=== PATIENT | female | born 1940 | race Caucasian/White ===

== ENCOUNTER 2017-04-02 16:55 | Emergency (ER) | payer OTHER, MEDICARE ==
[2017-04-02 17:01] VITALS: TEMP 97.6
[2017-04-02] MEDS ORDERED: SODIUM CHLORIDE 0.9% 1,000 ML IV STA (17:44)
[2017-04-02] MEDS ORDERED: methylPREDNISolone SOD SUCCI 125 MG/2 ML VIAL IV STA (17:44)
[2017-04-02] MEDS ORDERED: IPRATROPIUM-ALBUTEROL 3 ML NEB INHALATION STA (17:44)
--- NOTE | 2017-04-02 17:49 | ED ---
General Adult HPI - General Chief complaint: Recheck/Abnormal Lab/Rx Stated complaint: Sent By Urgent Care Abnormal EKG Time Seen by Provider: 04/02/17 17:39 Source: patient Mode of arrival: ambulatory Limitations: no limitations - History of Present Illness Initial comments: This 76-year-old white female presents with a complaint of shortness of breath which has been present over the last 3 weeks. She has had a nonproductive cough as well as occasional chest tightness which is in her bilateral sternal region. This is nonpleuritic in nature. 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 She only utilizes oxygen at night. She has not utilized any breathing treatments but does utilize her inhalers. She is visiting from this area from out of town. She has tried some ewqa-suv-olqvpuo cough medication without relief. She denies any fevers or chills. She denies any leg pain or swelling or history of DVT or PE. She stopped utilizing tobacco 2 years ago. No other complaints or modifying factors. She was seen at an urgent care prior to arrival and sent to the ER for further evaluation. She was told that she has an abnormal EKG although the EKG from urgent care appears quite normal. - Related Data Home Medications Medication Instructions Recorded Confirmed Atorvastatin Calcium [Lipitor] 20 mg PO DAILY 04/02/17 04/02/17 Citalopram Hydrobromide 20 mg PO DAILY 04/02/17 04/02/17 [Citalopram HBr] Dabigatran [Pradaxa] 75 mg PO BID 04/02/17 04/02/17 Diltiazem Cd [Cardizem Cd] 180 mg PO DAILY 04/02/17 04/02/17 Ipratropium/Albuterol Sulfate 1 - 2 puff INHALATION RT-Q6H PRN 04/02/17 04/02/17 [Combivent Respimat Inhaler] Tiotropium Br/Olodaterol HCl 1 spray INHALATION RT-DAILY 04/02/17 04/02/17 [Stiolto Respimat Inhal [place]] guaiFENesin SYRUP 100MG/5ML 200 mg PO Q6H PRN 04/02/17 04/02/17 [Robitussin] Previous Rx's Medication Instructions Recorded Ipratropium-Albuterol Nebulize 3 ml INHALATION Q4H PRN #50 neb 04/02/17 [Duoneb 0.5 mg-3 mg/3 ml Soln] Levofloxacin [Levaquin] 500 mg PO DAILY #7 tab 04/02/17 Lxih-Zdqb-Cip 6.25-5-10Mg/5Ml 5 ml PO Q4H PRN #100 ml 04/02/17 [Phenergan VC with Codeine] predniSONE 20 mg PO BID #10 tab 04/02/17 Allergies Allergy/AdvReac Type Severity Reaction Status Date / Time Penicillins Allergy Rash/Hives Verified 04/02/17 17:58 Sulfa (Sulfonamide Allergy Rash/Hives Verified 04/02/17 17:58 Antibiotics) Review of Systems ROS Statement: Those systems with pertinent positive or pertinent negative responses have been documented in the HPI. ROS Other: All systems not noted in ROS Statement are negative. Past Medical History Past Medical History: Cancer, COPD, CVA/TIA, Hypertension Additional Past Medical History / Comment(s): breast CA History of Any Multi-Drug Resistant Organisms: None Reported Past Surgical History: Tonsillectomy Additional Past Surgical History / Comment(s): left breast tumor resection Past Psychological History: No Psychological Hx Reported Smoking Status: Former smoker Past Alcohol Use History: Occasional Past Drug Use History: None Reported General Exam - General Exam Comments Initial Comments: GENERAL: The patient is well nourished and well hydrated. VITAL SIGNS: Heart rate, blood pressure, respiratory rate reviewed as recorded in nurse's notes. EYES: Pupils are round and reactive. Extraocular movements are intact. No conjunctival / lid redness or swelling. ENT: No external evidence of injury, swelling, or ecchymosis. Airway is patent. Throat is clear. NECK: Nontender. No swelling or evidence of injury. No subcutaneous emphysema. Trachea is midline. No thyroid mass. HEART: Regular rate and rhythm. Good peripheral pulses. LUNGS/CHEST: Decreased aeration noted bilaterally. No rales, rhonchi, or wheezes. No ecchymosis, subcutaneous emphysema, or tenderness. ABDOMEN: Abdomen soft without tenderness. No palpable masses or organomegaly. No peritoneal signs. No abdominal wall swelling or ecchymosis. EXTREMITIES: No extremity tenderness. Normal muscle tone and function. No thoracolumbar tenderness. NEUROLOGIC: Sensation is grossly intact. Cranial nerve exam reveals face is symmetrical, tongue is midline, speech is clear. SKIN: No abrasions or ecchymosis is noted. No induration or masses noted. PSYCHIATRIC: Alert and oriented. Appropriate behavior and judgment. Limitations: no limitations Course Vital Signs 04/02/17 04/02/17 04/02/17 16:57 18:40 18:56 Temperature 97.6 F Pulse Rate 97 100 100 Respiratory 18 Rate Blood Pressure 136/65 O2 Sat by Pulse 90 L Oximetry 04/02/17 20:09 Temperature Pulse Rate 97 Respiratory 20 Rate Blood Pressure 144/75 O2 Sat by Pulse 94 L Oximetry Medical Decision Making - Medical Decision Making The patient was seen and examined. All diagnostics were reviewed. An IV is started and she is hydrated. She has an EKG done which shows a normal sinus rhythm at a rate of 88. There is evidence of an old septal myocardial infarction but no acute ST elevation is noted. There is some nonspecific ST-T wave changes noted primarily in the inferolateral leads. The QTc interval is prolonged at 738. The MA interval is 142, the QRS duration is 82. She receives DuoNeb breathing treatment 2. She also receives some IV Solu-Medrol. The chest x-ray shows a right middle lobe linear density consistent with scarring and atelectasis. There is also evidence of COPD. No definite evidence of pneumonia. The laboratory is reviewed and shows some mild renal insufficiency. Overall, it is felt as though the patient has a bronchitis as well as exacerbation of COPD. She is feeling much improved on recheck. It is felt as though she should stay in the hospital due to her severely prolonged QTc interval and chest pain as well as her COPD and bronchitis. She refuses to stay. Risks and benefits were discussed in detail. She does agree to return if her symptoms do worsen. She will be given follow-up information for cardiology as well as for a primary care physician and she will be in our area for the next month and a half. - Lab Data Result diagrams: 04/02/17 17:55 04/02/17 17:55 Lab Results 04/02/17 04/02/17 04/02/17 Range/Units 17:55 17:55 17:55 WBC 7.8 (3.8-10.6) k/uL RBC 3.86 (3.80-5.40) m/uL Hgb 13.6 (11.4-16.0) gm/dL Hct 41.2 (34.0-46.0) % MCV 106.8 H (80.0-100.0) fL MCH 35.3 H (25.0-35.0) pg MCHC 33.1 (31.0-37.0) g/dL RDW 14.3 (11.5-15.5) % Plt Count 256 (150-450) k/uL Neutrophils % 67 % Lymphocytes % 20 % Monocytes % 7 % Eosinophils % 2 % Basophils % 1 % Neutrophils # 5.2 (1.3-7.7) k/uL Lymphocytes # 1.6 (1.0-4.8) k/uL Monocytes # 0.5 (0-1.0) k/uL Eosinophils # 0.1 (0-0.7) k/uL Basophils # 0.1 (0-0.2) k/uL Macrocytosis Moderate PT (9.0-12.0) sec INR (<1.2) APTT (22.0-30.0) sec Sodium 138 (137-145) mmol/L Potassium 3.7 (3.5-5.1) mmol/L Chloride 100 (98-107) mmol/L Carbon Dioxide 27 (22-30) mmol/L Anion Gap 11 mmol/L BUN 18 H (7-17) mg/dL Creatinine 1.28 H (0.52-1.04) mg/dL Est GFR (MDRD) Af Amer 49 (>60 ml/min/1.73 sqM) Est GFR (MDRD) Non-Af 40 (>60 ml/min/1.73 sqM) Glucose 96 (74-99) mg/dL Calcium 8.9 (8.4-10.2) mg/dL Total Bilirubin 0.8 (0.2-1.3) mg/dL AST 48 H (14-36) U/L ALT 38 (9-52) U/L Alkaline Phosphatase 124 (38-126) U/L Total Creatine Kinase 58 (30-135) U/L CK-MB (CK-2) 1.1 (0.0-2.4) ng/mL CK-MB (CK-2) Rel Index 1.9 Troponin I <0.012 (0.000-0.034) ng/mL NT-Pro-B Natriuret Pep pg/mL Total Protein 6.9 (6.3-8.2) g/dL Albumin 3.8 (3.5-5.0) g/dL 04/02/17 04/02/17 Range/Units 17:55 17:55 WBC (3.8-10.6) k/uL RBC (3.80-5.40) m/uL Hgb (11.4-16.0) gm/dL Hct (34.0-46.0) % MCV (80.0-100.0) fL MCH (25.0-35.0) pg MCHC (31.0-37.0) g/dL RDW (11.5-15.5) % Plt Count (150-450) k/uL Neutrophils % % Lymphocytes % % Monocytes % % Eosinophils % % Basophils % % Neutrophils # (1.3-7.7) k/uL Lymphocytes # (1.0-4.8) k/uL Monocytes # (0-1.0) k/uL Eosinophils # (0-0.7) k/uL Basophils # (0-0.2) k/uL Macrocytosis PT 13.0 H (9.0-12.0) sec INR 1.3 H (<1.2) APTT 40.6 H (22.0-30.0) sec Sodium (137-145) mmol/L Potassium (3.5-5.1) mmol/L Chloride (98-107) mmol/L Carbon Dioxide (22-30) mmol/L Anion Gap mmol/L BUN (7-17) mg/dL Creatinine (0.52-1.04) mg/dL Est GFR (MDRD) Af Amer (>60 ml/min/1.73 sqM) Est GFR (MDRD) Non-Af (>60 ml/min/1.73 sqM) Glucose (74-99) mg/dL Calcium (8.4-10.2) mg/dL Total Bilirubin (0.2-1.3) mg/dL AST (14-36) U/L ALT (9-52) U/L Alkaline Phosphatase (38-126) U/L Total Creatine Kinase (30-135) U/L CK-MB (CK-2) (0.0-2.4) ng/mL CK-MB (CK-2) Rel Index Troponin I (0.000-0.034) ng/mL NT-Pro-B Natriuret Pep 520 pg/mL Total Protein (6.3-8.2) g/dL Albumin (3.5-5.0) g/dL Disposition Clinical Impression: Dyspnea, COPD (chronic obstructive pulmonary disease), Prolonged Q-T interval on ECG, Hypoxia, Cough, Bronchitis, Renal insufficiency, Chest pain, Left against medical advice Disposition: Left Against Medical Advice Condition: Fair Instructions: Acute Bronchitis (ED), COPD (Chronic Obstructive Pulmonary Disease) (ED), Chest Pain (ED), Against Medical Advice (ED) Additional Instructions: Her QTc interval was severely elevated on her EKG and we recommend that you follow-up with her certified surgical assistant in this regard as well as in regard to your chest pain. Prescriptions: Ipratropium-Albuterol Nebulize [Duoneb 0.5 mg-3 mg/3 ml Soln] 3 ml INHALATION Q4H PRN #50 neb PRN Reason: Shortness Of Breath Levofloxacin [Levaquin] 500 mg PO DAILY #7 tab predniSONE 20 mg PO BID #10 tab Tekd-Hsph-Rgh 6.25-5-10Mg/5Ml [Phenergan VC with Codeine] 5 ml PO Q4H PRN #100 ml PRN Reason: Cough Referrals: Devi Nj MD [STAFF PHYSICIAN] - 1-2 days Trevor Zepeda MD [STAFF PHYSICIAN] - 1-2 days Time of Disposition: 20:26
[2017-04-02 18:12] LABS: Basophils # (A) 0.1 k/uL (0-0.2); Basophils % (A) 1 %; CH 36.1; CHCM 33.9; Eosinophils # (A) 0.1 k/uL (0-0.7); Eosinophils % (A) 2 %; HCT 41.2 % (34.0-46.0); HDW 2.12; HGB 13.6 gm/dL (11.4-16.0); Luc # (Auto) 0.26; Luc % (Auto) 3; Lymphocytes # (A) 1.6 k/uL (1.0-4.8); Lymphocytes % (A) 20 %; MCH 35.3 pg (25.0-35.0); MCHC 33.1 g/dL (31.0-37.0); MCV 106.8 fL (80.0-100.0); Macrocytosis Moderate; Mean Platelet Volume 7.2; Monocytes # (A) 0.5 k/uL (0-1.0); Monocytes % (A) 7 %; Neutrophils # (A) 5.2 k/uL (1.3-7.7); Neutrophils % (A) 67 %; RBC 3.86 m/uL (3.80-5.40); RDW 14.3 % (11.5-15.5); WBC 7.8 k/uL (3.8-10.6); WBC (Perox) 7.99
[2017-04-02 18:23] LABS: Partial Thromboplastin Time 40.6 sec (22.0-30.0)
[2017-04-02 18:29] LABS: Calcium 8.9 mg/dL (8.4-10.2); Potassium 3.7 mmol/L (3.5-5.1); Total Bilirubin 0.8 mg/dL (0.2-1.3); Total Protein 6.9 g/dL (6.3-8.2)
[2017-04-02 18:30] LABS: Creatine Kinase 58 U/L (30-135); INR 1.3 (<1.2)
[2017-04-02 18:44] LABS: Creatine Kinase MB 1.1 ng/mL (0.0-2.4); Troponin I <0.012 ng/mL (0.000-0.034)
--- NOTE | 2017-04-02 19:07 | XR ---
EXAMINATION TYPE: XR chest 2V DATE OF EXAM: 04/02/2017 COMPARISON: NONE HISTORY: Short of breath chest pain TECHNIQUE: Frontal and lateral views of the chest are obtained. FINDINGS: Heart size is normal. There is pulmonary hyperinflation and flattening of the diaphragm. T here is some linear density in the right middle lobe. There is no heart failure. Thoracic aorta is in tact. There are chest leads. Bones appear osteopenic. IMPRESSION: Right middle lobe linear density consistent with scarring and atelectasis. Normal heart. COPD.
[2017-04-02 20:09] VITALS: BP 144/75; PULSE 97; RESP 20
== END 2017-04-02 20:41 | disposition left against medical advice (07) ==
LOC: EC 16:55
DX: J44.9 Chronic obstructive pulmonary disease, unspecified (principal); I45.81 Long QT syndrome; J40 Bronchitis, not specified as acute or chronic; N28.9 Disorder of kidney and ureter, unspecified; R09.02 Hypoxemia; I10 Essential (primary) hypertension; C50.912 Malignant neoplasm of unspecified site of left female breast; Z86.73 Personal history of transient ischemic attack (TIA), and cerebral infarction without residual deficits; Z87.891 Personal history of nicotine dependence; Z79.899 Other long term (current) drug therapy; Z88.0 Allergy status to penicillin; Z88.2 Allergy status to sulfonamides
CPT/HCPCS: 36415; 94640; 93005; 83880; 80053; 82550; 82553; 84484; 85025; 85610; 85730; 87040; 71020; 99285; 96374; 96361 ×2; J2930

== ENCOUNTER 2017-04-19 16:26 | Emergency (ER) | payer OTHER, MEDICARE ==
[2017-04-19] MEDS ORDERED: methylPREDNISolone SOD SUCCI 125 MG/2 ML VIAL IV STA (17:26)
[2017-04-19] MEDS ORDERED: ALBUTEROL NEBULIZED 2.5 MG/3 ML INHALATION STA (17:26)
[2017-04-19] MEDS ORDERED: IPRATROPIUM 0.5 MG/2.5 ML NEBU INHALATION STA (17:26)
[2017-04-19] MEDS ORDERED: LEVOFLOXACIN 750 MG TAB PO STA (17:26)
[2017-04-19] MEDS ORDERED: SODIUM CHLORIDE 0.9% 1,000 ML IV STA (17:26)
[2017-04-19 17:48] LABS: Basophils % (A) 0 %; CH 35.1; CHCM 33.9; Eosinophils # (A) 0.3 k/uL (0-0.7); Eosinophils % (A) 3 %; HCT 43.3 % (34.0-46.0); HDW 2.07; HGB 14.8 gm/dL (11.4-16.0); Luc # (Auto) 0.23; Luc % (Auto) 2; Lymphocytes # (A) 1.1 k/uL (1.0-4.8); Lymphocytes % (A) 11 %; MCH 35.6 pg (25.0-35.0); MCHC 34.3 g/dL (31.0-37.0); Macrocytosis Slight; Mean Platelet Volume 6.7; Monocytes # (A) 0.5 k/uL (0-1.0); Monocytes % (A) 5 %; Neutrophils # (A) 8.1 k/uL (1.3-7.7); Neutrophils % (A) 80 %; RBC 4.16 m/uL (3.80-5.40); RDW 13.3 % (11.5-15.5); WBC 10.2 k/uL (3.8-10.6); WBC (Perox) 9.85
[2017-04-19 17:52] LABS: INR 1.3 (<1.2); Partial Thromboplastin Time 40.8 sec (22.0-30.0)
[2017-04-19 17:55] LABS: Calcium 8.9 mg/dL (8.4-10.2); Potassium 3.6 mmol/L (3.5-5.1); Total Bilirubin 0.9 mg/dL (0.2-1.3); Total Protein 6.5 g/dL (6.3-8.2)
[2017-04-19 17:56] LABS: Creatine Kinase 30 U/L (30-135)
--- NOTE | 2017-04-19 18:07 | XR ---
EXAMINATION TYPE: XR chest 2V DATE OF EXAM: 04/19/2017 COMPARISON: 03/25/2017 HISTORY: Short of breath TECHNIQUE: Frontal and lateral views of the chest are obtained. FINDINGS: There is prominent hyperinflation with flattening of the diaphragm. There is linear densit y around the pulmonary flori consistent with scarring and atelectasis. Heart size is normal. There is no heart failure. Thoracic aorta is atheromatous. There are chest leads. IMPRESSION: COPD. Bilateral perihilar mild scarring and atelectasis similar to old exam. Normal hear t.
[2017-04-19 18:08] LABS: Creatine Kinase MB 0.8 ng/mL (0.0-2.4); Troponin I <0.012 ng/mL (0.000-0.034)
--- NOTE | 2017-04-19 19:38 | ED ---
SOB HPI - General Chief Complaint: Shortness of Breath Stated Complaint: Difficulty Breathing Time Seen by Provider: 04/19/17 16:53 Source: patient Mode of arrival: ambulatory Limitations: no limitations - History of Present Illness Initial Comments: 76 years old female came in with a shortness of breath, she has a history of COPD she was on antibiotics and prednisone cold she finished that 2 days ago and today she is having shortness of breath she denies any chest pain there is no pleuritic chest pain no fever no chills she does cough but she is not bringing up any phlegm denies any headaches no neck stiffness no chest pain she has a shortness of breath or abdominal pain no frequency urgency dysuria - Related Data Home Medications Medication Instructions Recorded Confirmed Atorvastatin Calcium [Lipitor] 20 mg PO DAILY 04/02/17 04/19/17 Citalopram Hydrobromide 20 mg PO DAILY 04/02/17 04/19/17 [Citalopram HBr] Dabigatran [Pradaxa] 75 mg PO BID 04/02/17 04/19/17 Diltiazem Cd [Cardizem Cd] 180 mg PO DAILY 04/02/17 04/19/17 Ipratropium/Albuterol Sulfate 1 - 2 puff INHALATION RT-QID PRN 04/02/17 04/19/17 [Combivent Respimat Inhaler] Tiotropium Br/Olodaterol HCl 2 puff INHALATION RT-DAILY 04/02/17 04/19/17 [Stiolto Respimat Inhal [place]] Furosemide [Lasix] 40 mg PO DAILY 04/19/17 04/19/17 Previous Rx's Medication Instructions Recorded Levofloxacin [Levaquin] 750 mg PO DAILY #7 tab 04/19/17 predniSONE 50 mg PO DAILY #5 tablet 04/19/17 Allergies Allergy/AdvReac Type Severity Reaction Status Date / Time Penicillins Allergy Anaphylaxis Verified 04/19/17 17:17 Sulfa (Sulfonamide Allergy Facial Verified 04/19/17 17:17 Antibiotics) Swelling Review of Systems ROS Statement: Those systems with pertinent positive or pertinent negative responses have been documented in the HPI. ROS Other: All systems not noted in ROS Statement are negative. Past Medical History Past Medical History: Cancer, COPD, CVA/TIA, Hypertension Additional Past Medical History / Comment(s): breast CA History of Any Multi-Drug Resistant Organisms: None Reported Past Surgical History: Tonsillectomy Additional Past Surgical History / Comment(s): left breast tumor resection Past Psychological History: No Psychological Hx Reported Smoking Status: Former smoker Past Alcohol Use History: Occasional Past Drug Use History: None Reported General Exam - General Exam Comments Initial Comments: General: The patient is awake and alert, in moderate distress Skin: Skin is warm and dry and no rashes or lesions are noted. Eye: Pupils are equal, round and reactive to light, extra-ocular movements are intact; there is normal conjunctiva bilaterally. Ears, nose, mouth and throat: There are moist mucous membranes and no oral lesions. Neck: The neck is supple, there is no tenderness or JVD. Cardiovascular: There is a regular rate and rhythm. No murmur, rub or gallop is appreciated. Respiratory: To auscultation bilateral, noticed mild wheezing Gastrointestinal: Soft, non-distended, non-tender abdomen without masses or organomegaly noted. There is no rebound or guarding present. Bowel sounds are unremarkable. Back: There is no tenderness to palpation in the midline. There is no obvious deformity. Musculoskeletal: Normal ROM, no tenderness, There is no pedal edema. There is no calf tenderness or swelling. No cords were appreciated. Neurological: CN II-XII intact, Cranial nerves III through XII are intact. There are no obvious motor or sensory deficits. Coordination appears grossly intact. Speech is normal. Psychiatric: Cooperative, appropriate mood & affect, normal judgment. Limitations: no limitations Course Vital Signs 04/19/17 04/19/17 04/19/17 16:36 17:52 18:15 Temperature 98.7 F Pulse Rate 108 H 85 87 Respiratory 20 18 Rate Blood Pressure 117/61 147/66 O2 Sat by Pulse 92 L 97 Oximetry 04/19/17 04/19/17 04/19/17 18:25 18:35 18:45 Temperature Pulse Rate 87 87 94 Respiratory 18 Rate Blood Pressure 121/69 O2 Sat by Pulse 94 L Oximetry She was reassessed at 192, her EKG is unremarkable her CBC, INR, compressive metabolic panel all unremarkable except creatinine is 1.6 troponin is negative EKG is negative so his his chest x-ray I offered her to be observed in the hospital overnight she prefers to go home she said she has oxygen supply at home and if she could get some steroids and antibiotic she will feel better. She'll be gone home on Levaquin 751 Daily for next 7 days and she'll 50 mg daily for 5 days then HER AFEBRILE WELL, SHE IS QUITE FAMILIAR WITH THIS STEROID USE Medical Decision Making - Lab Data Result diagrams: 04/19/17 17:00 04/19/17 17:00 Lab Results 04/19/17 04/19/17 04/19/17 Range/Units 17:00 17:00 17:00 WBC 10.2 (3.8-10.6) k/uL RBC 4.16 (3.80-5.40) m/uL Hgb 14.8 (11.4-16.0) gm/dL Hct 43.3 (34.0-46.0) % MCV 104.0 H (80.0-100.0) fL MCH 35.6 H (25.0-35.0) pg MCHC 34.3 (31.0-37.0) g/dL RDW 13.3 (11.5-15.5) % Plt Count 304 (150-450) k/uL Neutrophils % 80 % Lymphocytes % 11 % Monocytes % 5 % Eosinophils % 3 % Basophils % 0 % Neutrophils # 8.1 H (1.3-7.7) k/uL Lymphocytes # 1.1 (1.0-4.8) k/uL Monocytes # 0.5 (0-1.0) k/uL Eosinophils # 0.3 (0-0.7) k/uL Basophils # 0.0 (0-0.2) k/uL Macrocytosis Slight PT (9.0-12.0) sec INR (<1.2) APTT (22.0-30.0) sec Sodium 133 L (137-145) mmol/L Potassium 3.6 (3.5-5.1) mmol/L Chloride 96 L (98-107) mmol/L Carbon Dioxide 24 (22-30) mmol/L Anion Gap 13 mmol/L BUN 30 H (7-17) mg/dL Creatinine 1.60 H (0.52-1.04) mg/dL Est GFR (MDRD) Af Amer 38 (>60 ml/min/1.73 sqM) Est GFR (MDRD) Non-Af 31 (>60 ml/min/1.73 sqM) Glucose 127 H (74-99) mg/dL Calcium 8.9 (8.4-10.2) mg/dL Total Bilirubin 0.9 (0.2-1.3) mg/dL AST 28 (14-36) U/L ALT 29 (9-52) U/L Alkaline Phosphatase 120 (38-126) U/L Total Creatine Kinase 30 (30-135) U/L CK-MB (CK-2) 0.8 (0.0-2.4) ng/mL CK-MB (CK-2) Rel Index 2.7 Troponin I <0.012 (0.000-0.034) ng/mL NT-Pro-B Natriuret Pep pg/mL Total Protein 6.5 (6.3-8.2) g/dL Albumin 3.6 (3.5-5.0) g/dL 04/19/17 04/19/17 Range/Units 17:00 17:00 WBC (3.8-10.6) k/uL RBC (3.80-5.40) m/uL Hgb (11.4-16.0) gm/dL Hct (34.0-46.0) % MCV (80.0-100.0) fL MCH (25.0-35.0) pg MCHC (31.0-37.0) g/dL RDW (11.5-15.5) % Plt Count (150-450) k/uL Neutrophils % % Lymphocytes % % Monocytes % % Eosinophils % % Basophils % % Neutrophils # (1.3-7.7) k/uL Lymphocytes # (1.0-4.8) k/uL Monocytes # (0-1.0) k/uL Eosinophils # (0-0.7) k/uL Basophils # (0-0.2) k/uL Macrocytosis PT 13.0 H (9.0-12.0) sec INR 1.3 H (<1.2) APTT 40.8 H (22.0-30.0) sec Sodium (137-145) mmol/L Potassium (3.5-5.1) mmol/L Chloride (98-107) mmol/L Carbon Dioxide (22-30) mmol/L Anion Gap mmol/L BUN (7-17) mg/dL Creatinine (0.52-1.04) mg/dL Est GFR (MDRD) Af Amer (>60 ml/min/1.73 sqM) Est GFR (MDRD) Non-Af (>60 ml/min/1.73 sqM) Glucose (74-99) mg/dL Calcium (8.4-10.2) mg/dL Total Bilirubin (0.2-1.3) mg/dL AST (14-36) U/L ALT (9-52) U/L Alkaline Phosphatase (38-126) U/L Total Creatine Kinase (30-135) U/L CK-MB (CK-2) (0.0-2.4) ng/mL CK-MB (CK-2) Rel Index Troponin I (0.000-0.034) ng/mL NT-Pro-B Natriuret Pep 821 pg/mL Total Protein (6.3-8.2) g/dL Albumin (3.5-5.0) g/dL Disposition Clinical Impression: Acute exacerbation of COPD with asthma Disposition: HOME SELF-CARE Instructions: Bronchiolitis (ED) Prescriptions: Levofloxacin [Levaquin] 750 mg PO DAILY #7 tab predniSONE 50 mg PO DAILY #5 tablet Referrals: Nonstaff,Physician [Primary Care Provider] - 1-2 days
[2017-04-19 20:04] VITALS: BP 132/66; PULSE 95; RESP 20; TEMP 98.6
== END 2017-04-19 20:06 | disposition home or self-care (01) ==
LOC: EC 16:26
DX: J44.1 Chronic obstructive pulmonary disease with (acute) exacerbation (principal); J45.901 Unspecified asthma with (acute) exacerbation; I10 Essential (primary) hypertension; Z87.891 Personal history of nicotine dependence; Z79.01 Long term (current) use of anticoagulants; Z79.899 Other long term (current) drug therapy; Z88.0 Allergy status to penicillin; Z88.2 Allergy status to sulfonamides; Z86.73 Personal history of transient ischemic attack (TIA), and cerebral infarction without residual deficits; Z85.3 Personal history of malignant neoplasm of breast; Z98.890 Other specified postprocedural states
CPT/HCPCS: 99285; 96374; 96361 ×2; 36415; 94640 ×2; 93005; 83880; 80053; 82550; 82553; 84484; 85025; 85610; 85730; 71020; J2930

== ENCOUNTER 2017-05-24 16:56 | Inpatient (IN) | payer MEDICARE, OTHER ==
[2017-05-24] MEDS ORDERED: methylPREDNISolone SOD SUCCI 125 MG/2 ML VIAL IV STA (18:21)
[2017-05-24] MEDS ORDERED: IPRATROPIUM-ALBUTEROL 3 ML NEB INHALATION STA (18:21)
--- NOTE | 2017-05-24 18:22 | ED ---
General Adult HPI - General Chief complaint: Shortness of Breath Stated complaint: Dyspnea Time Seen by Provider: 05/24/17 18:06 Source: patient, family, RN notes reviewed Mode of arrival: wheelchair Limitations: physical limitation - History of Present Illness Initial comments: Patient is a pleasant 76-year-old female presenting to the emergency Department with shortness of breath and fatigue. Patient has had symptoms intermittently over the past few months. Symptoms are similar to previous COPD. No significant cough at this time. Patient feels her oxygen at home was not working well enough. No isolated area of weakness. No fevers. No chest pain. - Related Data Home Medications Medication Instructions Recorded Confirmed Atorvastatin Calcium [Lipitor] 20 mg PO DAILY 04/02/17 05/24/17 Citalopram Hydrobromide 20 mg PO DAILY 04/02/17 05/24/17 [Citalopram HBr] Dabigatran [Pradaxa] 75 mg PO BID 04/02/17 05/24/17 Diltiazem Cd [Cardizem Cd] 180 mg PO DAILY 04/02/17 05/24/17 Ipratropium/Albuterol Sulfate 1 - 2 puff INHALATION RT-QID PRN 04/02/17 05/24/17 [Combivent Respimat Inhaler] Tiotropium Br/Olodaterol HCl 2 puff INHALATION RT-DAILY 04/02/17 05/24/17 [Stiolto Respimat Inhal [place]] Furosemide [Lasix] 40 mg PO DAILY 04/19/17 05/24/17 Allergies Allergy/AdvReac Type Severity Reaction Status Date / Time Penicillins Allergy Anaphylaxis Verified 05/24/17 17:42 Sulfa (Sulfonamide Allergy Facial Verified 05/24/17 17:42 Antibiotics) Swelling Review of Systems ROS Statement: Those systems with pertinent positive or pertinent negative responses have been documented in the HPI. ROS Other: All systems not noted in ROS Statement are negative. Constitutional: Denies: fever Eyes: Denies: eye pain ENT: Denies: ear pain Respiratory: Reports: dyspnea Cardiovascular: Denies: chest pain Endocrine: Reports: fatigue Gastrointestinal: Denies: abdominal pain Genitourinary: Denies: dysuria Musculoskeletal: Denies: back pain Skin: Denies: rash Neurological: Denies: headache, weakness, confusion Past Medical History Past Medical History: Cancer, COPD, CVA/TIA, Hypertension Additional Past Medical History / Comment(s): breast CA History of Any Multi-Drug Resistant Organisms: None Reported Past Surgical History: Tonsillectomy Additional Past Surgical History / Comment(s): left breast tumor resection Past Psychological History: No Psychological Hx Reported Smoking Status: Former smoker Past Alcohol Use History: Occasional Past Drug Use History: None Reported General Exam Limitations: physical limitation General appearance: alert, in no apparent distress Head exam: Present: atraumatic Eye exam: Present: normal appearance, PERRL ENT exam: Present: normal oropharynx Neck exam: Present: normal inspection Respiratory exam: Present: wheezes, decreased breath sounds, other (Pursed lip breathing.) Cardiovascular Exam: Present: regular rate, normal rhythm GI/Abdominal exam: Present: soft. Absent: tenderness Extremities exam: Present: normal inspection. Absent: pedal edema, calf tenderness Neurological exam: Present: alert Psychiatric exam: Present: normal affect, normal mood Skin exam: Present: normal color Course Vital Signs 05/24/17 05/24/17 05/24/17 17:04 17:55 18:30 Temperature 98.4 F Pulse Rate 103 H 94 Pulse Rate [ 91 Glove Maker ] Respiratory 18 22 18 Rate Blood Pressure 122/60 O2 Sat by Pulse 93 L Oximetry 05/24/17 05/24/17 05/24/17 18:41 18:45 19:00 Temperature Pulse Rate 94 96 88 Pulse Rate [ Glove Maker ] Respiratory 18 26 H 25 H Rate Blood Pressure 130/67 112/66 O2 Sat by Pulse 95 94 L Oximetry EKG Findings - EKG Comments: EKG Findings:: Normal sinus rhythm 92. IN 1:30. QRS 76. QT 380. QTC 469. Right axis. Septal Q waves. No acute ST change. Medical Decision Making - Medical Decision Making Patient reevaluated and is somewhat improved. Patient and family updated on results and plan. Case discussed in detail with Dr. block, who will admit for hospital call. Cardiology will be consulted for mild change with troponin and BNP. Echo will be ordered. - Lab Data Result diagrams: 05/24/17 17:50 05/24/17 17:50 Lab Results 05/24/17 05/24/17 05/24/17 Range/Units 17:50 17:50 17:50 WBC 12.1 H (3.8-10.6) k/uL RBC 4.16 (3.80-5.40) m/uL Hgb 14.3 (11.4-16.0) gm/dL Hct 43.9 (34.0-46.0) % MCV 105.5 H (80.0-100.0) fL MCH 34.5 (25.0-35.0) pg MCHC 32.7 (31.0-37.0) g/dL RDW 13.7 (11.5-15.5) % Plt Count 347 (150-450) k/uL Neutrophils % 86 % Lymphocytes % 5 % Monocytes % 6 % Eosinophils % 0 % Basophils % 0 % Neutrophils # 10.5 H (1.3-7.7) k/uL Lymphocytes # 0.7 L (1.0-4.8) k/uL Monocytes # 0.7 (0-1.0) k/uL Eosinophils # 0.0 (0-0.7) k/uL Basophils # 0.0 (0-0.2) k/uL Macrocytosis Moderate PT (9.0-12.0) sec INR (<1.2) APTT (22.0-30.0) sec Sodium 134 L (137-145) mmol/L Potassium 4.0 (3.5-5.1) mmol/L Chloride 94 L (98-107) mmol/L Carbon Dioxide 24 (22-30) mmol/L Anion Gap 16 mmol/L BUN 34 H (7-17) mg/dL Creatinine 1.50 H (0.52-1.04) mg/dL Est GFR (MDRD) Af Amer 41 (>60 ml/min/1.73 sqM) Est GFR (MDRD) Non-Af 34 (>60 ml/min/1.73 sqM) Glucose 106 H (74-99) mg/dL Calcium 9.0 (8.4-10.2) mg/dL Total Bilirubin 0.9 (0.2-1.3) mg/dL AST 22 (14-36) U/L ALT 28 (9-52) U/L Alkaline Phosphatase 115 (38-126) U/L Total Creatine Kinase 32 (30-135) U/L CK-MB (CK-2) 1.2 (0.0-2.4) ng/mL CK-MB (CK-2) Rel Index 3.8 Troponin I 0.077 H* (0.000-0.034) ng/mL NT-Pro-B Natriuret Pep pg/mL Total Protein 5.9 L (6.3-8.2) g/dL Albumin 3.2 L (3.5-5.0) g/dL 05/24/17 05/24/17 Range/Units 17:50 17:50 WBC (3.8-10.6) k/uL RBC (3.80-5.40) m/uL Hgb (11.4-16.0) gm/dL Hct (34.0-46.0) % MCV (80.0-100.0) fL MCH (25.0-35.0) pg MCHC (31.0-37.0) g/dL RDW (11.5-15.5) % Plt Count (150-450) k/uL Neutrophils % % Lymphocytes % % Monocytes % % Eosinophils % % Basophils % % Neutrophils # (1.3-7.7) k/uL Lymphocytes # (1.0-4.8) k/uL Monocytes # (0-1.0) k/uL Eosinophils # (0-0.7) k/uL Basophils # (0-0.2) k/uL Macrocytosis PT 11.9 (9.0-12.0) sec INR 1.2 H (<1.2) APTT 33.5 H (22.0-30.0) sec Sodium (137-145) mmol/L Potassium (3.5-5.1) mmol/L Chloride (98-107) mmol/L Carbon Dioxide (22-30) mmol/L Anion Gap mmol/L BUN (7-17) mg/dL Creatinine (0.52-1.04) mg/dL Est GFR (MDRD) Af Amer (>60 ml/min/1.73 sqM) Est GFR (MDRD) Non-Af (>60 ml/min/1.73 sqM) Glucose (74-99) mg/dL Calcium (8.4-10.2) mg/dL Total Bilirubin (0.2-1.3) mg/dL AST (14-36) U/L ALT (9-52) U/L Alkaline Phosphatase (38-126) U/L Total Creatine Kinase (30-135) U/L CK-MB (CK-2) (0.0-2.4) ng/mL CK-MB (CK-2) Rel Index Troponin I (0.000-0.034) ng/mL NT-Pro-B Natriuret Pep 7680 pg/mL Total Protein (6.3-8.2) g/dL Albumin (3.5-5.0) g/dL - Radiology Data Radiology results: image reviewed (60 shows hyperinflation consistent with COPD , no acute process.) Disposition Clinical Impression: Acute exacerbation of chronic obstructive airways disease Disposition: ADMITTED IP TO THIS HOSP Referrals: Nonstaff,Physician [Primary Care Provider] - 1-2 days Decision Time: 20:09
[2017-05-24 18:51] LABS: Basophils % (A) 0 %; CH 34.9; CHCM 33.2; Eosinophils % (A) 0 %; HCT 43.9 % (34.0-46.0); HDW 2.18; HGB 14.3 gm/dL (11.4-16.0); Luc # (Auto) 0.19; Luc % (Auto) 2; Lymphocytes # (A) 0.7 k/uL (1.0-4.8); Lymphocytes % (A) 5 %; MCH 34.5 pg (25.0-35.0); MCHC 32.7 g/dL (31.0-37.0); MCV 105.5 fL (80.0-100.0); Macrocytosis Moderate; Mean Platelet Volume 7.2; Monocytes # (A) 0.7 k/uL (0-1.0); Monocytes % (A) 6 %; Neutrophils # (A) 10.5 k/uL (1.3-7.7); Neutrophils % (A) 86 %; RBC 4.16 m/uL (3.80-5.40); RDW 13.7 % (11.5-15.5); WBC 12.1 k/uL (3.8-10.6); WBC (Perox) 11.53
[2017-05-24 19:00] LABS: Total Bilirubin 0.9 mg/dL (0.2-1.3); Total Protein 5.9 g/dL (6.3-8.2)
--- NOTE | 2017-05-24 19:01 | XR ---
EXAMINATION TYPE: XR chest 2V DATE OF EXAM: 05/24/2017 COMPARISON: 04/19/2017 HISTORY: Difficulty breathing TECHNIQUE: Frontal and lateral views of the chest are obtained. FINDINGS: Pulmonary per inflation is seen with flattening of the diaphragms and biapical lucency rela rolando to underlying COPD. There is no focal air space opacity, pleural effusion, or pneumothorax seen. The cardiac silhouette size is within normal limits. The osseous structures are intact. Mild dege nerative changes of the thoracic spine are present. IMPRESSION: 1. No acute cardiopulmonary process. 2. Radiographic sequela of COPD.
[2017-05-24 19:03] LABS: INR 1.2 (<1.2); Partial Thromboplastin Time 33.5 sec (22.0-30.0); Prothrombin Time 11.9 sec (9.0-12.0)
[2017-05-24 19:24] LABS: Creatine Kinase MB 1.2 ng/mL (0.0-2.4)
[2017-05-24 19:26] LABS: Troponin I 0.077 ng/mL (0.000-0.034)
[2017-05-24] MEDS ORDERED: IPRATROPIUM-ALBUTEROL 3 ML NEB INHALATION PRN (20:09)
[2017-05-25] MEDS: methylPREDNISolone SOD SUCCI 125 MG/2 ML VIAL IV SCH ×2 (00:12→06:45)
[2017-05-25 01:26] LABS: Troponin I 0.069 ng/mL (0.000-0.034)
[2017-05-25 06:05] LABS: Glucose,Whole Blood 204 mg/dL (75-99)
[2017-05-25 06:44] LABS: Creatine Kinase MB 2.1 ng/mL (0.0-2.4)
[2017-05-25 06:52] LABS: Troponin I 0.054 ng/mL (0.000-0.034)
[2017-05-25] MEDS: INSULIN LISPRO (humaLOG) 300 UNIT/3 ML VIAL SQ SCH ×4 (06:58→21:25)
[2017-05-25] MEDS: IPRATROPIUM-ALBUTEROL 3 ML NEB INHALATION SCH ×4 (08:31→20:40)
[2017-05-25] MEDS: DILTIAZEM CD 180 MG CAP.ER.24H PO SCH (08:38)
[2017-05-25] MEDS: ATORVASTATIN 20 MG TAB PO SCH (08:38)
[2017-05-25] MEDS: DABIGATRAN 75 MG CAP PO SCH ×2 (08:38→21:25)
[2017-05-25] MEDS: CITALOPRAM HYDROBROMIDE 20 MG TAB PO SCH (08:38)
[2017-05-25] MEDS ORDERED: FUROSEMIDE 20 MG TAB PO SCH (09:00)
--- NOTE | 2017-05-25 10:43 | P.CRDCN ---
History of Present Illness Consult date: 05/25/17 Requesting physician: Tr Hua Reason for Consult (text): dyspnea Chief complaint: shortness of breath History of present illness: This is a pleasant 76-year-old female who is visiting here from [place]. She has a past medical history significant for COPD, hypertension, TIA, breast cancer, and paroxysmal atrial fibrillation. She follows with Dr. Romo, a executive team leader, in [place]. She presented with complaints of progressively worsening shortness of breath that she feels is similar to previous COPD exacerbations. She denied any complaints of chest discomfort or edema. She was treated earlier this year by her executive team leader for lower extremity edema which has resolved on Lasix 40 mg daily. Chest x-ray on presentation showed no acute cardiopulmonary process. EKG is of poor quality with motion artifact. Laboratory values were reviewed and showed a BNP to be elevated at 7680, BUN of 34, creatinine 1.5 and mildly elevated troponins of 0.077, 0.069 and 0.054. Previous records were reviewed and one month ago, BNP was 821. Looks like patient does have some underlying chronic renal failure with a baseline creatinine of 1.28 and a BUN of 18. Upon examination, patient is resting comfortably in bed. She says she is feeling quite a bit better. She continues to complain of some dyspnea however this has dramatically improved with Solu-Medrol. She underwent 2-D echo with Doppler this morning. She is scheduled to return home to [place] this coming . Past Medical History Past Medical History: Cancer, COPD, CVA/TIA, Hypertension Additional Past Medical History / Comment(s): Patient wears 2L home O2. breast CA, CVA in 2001- has three fingers that are numb on the left hand, otherwise no defecits. patient states she had ecoli in her blood stream 2 years ago. was also recently diagnosed with bronchitis and was sent home on antibiotics and steroids. History of Any Multi-Drug Resistant Organisms: None Reported Past Surgical History: Tonsillectomy Additional Past Surgical History / Comment(s): left breast tumor resection Past Anesthesia/Blood Transfusion Reactions: No Reported Reaction Past Psychological History: No Psychological Hx Reported Additional Psychological History / Comment(s): Patient currently lives in [place] but has a home in [place] outside of [facility]. She has been here visiting since March 09. Says she has not felt well and was diagnosed with bronchitis shortly after arriving here. Lives alone in her home. States her 3 years ago. Smoking Status: Former smoker Past Alcohol Use History: Occasional Past Drug Use History: None Reported - Past Family History Father Family Medical History: Coronary Artery Disease (CAD) Brother(s) Family Medical History: Coronary Artery Disease (CAD) Sister(s) Family Medical History: Cancer, COPD Additional Family Medical History / Comment(s): cancer in the fallopian tubes Medications and Allergies Home Medications Medication Instructions Recorded Confirmed Type Atorvastatin Calcium [Lipitor] 20 mg PO DAILY 04/02/17 05/24/17 History Citalopram Hydrobromide 20 mg PO DAILY 04/02/17 05/24/17 History [Citalopram HBr] Dabigatran [Pradaxa] 75 mg PO BID 04/02/17 05/24/17 History Diltiazem Cd [Cardizem Cd] 180 mg PO DAILY 04/02/17 05/24/17 History Ipratropium/Albuterol Sulfate 1 - 2 puff INHALATION RT-QID PRN 04/02/17 History [Combivent Respimat Inhaler] Tiotropium Br/Olodaterol HCl 2 puff INHALATION RT-DAILY 04/02/17 05/24/17 History [Stiolto Respimat Inhal [place]] Furosemide [Lasix] 40 mg PO DAILY 04/19/17 05/24/17 History Allergies Allergy/AdvReac Type Severity Reaction Status Date / Time Penicillins Allergy Anaphylaxis Verified 05/24/17 17:42 Sulfa (Sulfonamide Allergy Facial Verified 05/24/17 17:42 Antibiotics) Swelling Physical Exam Vitals: Vital Signs Temp Pulse Pulse Resp BP BP Pulse Ox 05/25/17 08:43 88 05/25/17 08:31 80 05/25/17 08:00 97.6 F 89 20 106/60 97 05/25/17 04:00 97.8 F 85 18 120/75 98 05/25/17 00:00 97.0 F L 95 20 109/59 96 05/24/17 21:19 97.8 F 95 24 127/78 95 05/24/17 20:48 98.0 F 91 25 H 128/71 94 L 05/24/17 19:00 88 25 H 112/66 94 L 05/24/17 18:45 96 26 H 130/67 95 05/24/17 18:41 94 18 05/24/17 18:30 94 18 05/24/17 17:55 91 22 05/24/17 17:04 98.4 F 103 H 18 122/60 93 L Intake and Output 05/24/17 05/25/17 05/25/17 22:59 06:59 14:59 Intake Total 200 Balance 200 Intake: Oral 200 Other: Voiding Method Toilet # Voids 0 1 Weight 45.3 kg 43.8 kg PHYSICAL EXAMINATION: HEENT: Head is atraumatic, normocephalic. Pupils equal, round. Neck is supple. There is no elevated jugular venous pressure. HEART EXAMINATION: Heart sounds regular, S1 and S2 normal. No murmur or gallop heard. CHEST EXAMINATION: Lungs reveal significantly diminished air entry throughout with faint crackles to bilateral bases. No chest wall tenderness is noted on palpation or with deep breathing. ABDOMEN: Soft, nontender. Bowel sounds are heard. No organomegaly noted. EXTREMITIES: 2+ peripheral pulses with no evidence of peripheral edema and no calf tenderness noted. NEUROLOGIC patient is awake, alert and oriented x3. . Results 05/24/17 17:50 05/24/17 17:50 Cardiac Enzymes 05/24/17 05/24/17 05/25/17 Range/Units 17:50 17:50 00:34 AST 22 (14-36) U/L CK-MB (CK-2) 1.2 2.0 (0.0-2.4) ng/mL Troponin I 0.077 H* 0.069 H* (0.000-0.034) ng/mL 05/25/17 Range/Units 05:39 AST (14-36) U/L CK-MB (CK-2) 2.1 (0.0-2.4) ng/mL Troponin I 0.054 H* (0.000-0.034) ng/mL Coagulation 05/24/17 Range/Units 17:50 PT 11.9 (9.0-12.0) sec APTT 33.5 H (22.0-30.0) sec CBC 05/24/17 Range/Units 17:50 WBC 12.1 H (3.8-10.6) k/uL RBC 4.16 (3.80-5.40) m/uL Hgb 14.3 (11.4-16.0) gm/dL Hct 43.9 (34.0-46.0) % Plt Count 347 (150-450) k/uL Comprehensive Metabolic Panel 05/24/17 Range/Units 17:50 Sodium 134 L (137-145) mmol/L Potassium 4.0 (3.5-5.1) mmol/L Chloride 94 L (98-107) mmol/L Carbon Dioxide 24 (22-30) mmol/L BUN 34 H (7-17) mg/dL Creatinine 1.50 H (0.52-1.04) mg/dL Glucose 106 H (74-99) mg/dL Calcium 9.0 (8.4-10.2) mg/dL AST 22 (14-36) U/L ALT 28 (9-52) U/L Alkaline Phosphatase 115 (38-126) U/L Total Protein 5.9 L (6.3-8.2) g/dL Albumin 3.2 L (3.5-5.0) g/dL Current Medications Generic Name Dose Route Start Last Admin Trade Name Freq PRN Reason Stop Dose Admin Albuterol/Ipratropium 3 ml 05/25/17 08:00 05/25/17 08:31 Duoneb 0.5 Mg-3 Mg/3 Ml Soln INHALATION 3 ml RT-QID DANIELLE Administration Albuterol/Ipratropium 3 ml 05/24/17 20:09 Duoneb 0.5 Mg-3 Mg/3 Ml Soln INHALATION RT-Q4H PRN Shortness Of Breath Or Wheezing Atorvastatin Calcium 20 mg 05/25/17 09:00 05/25/17 08:38 Lipitor PO 20 mg DAILY DANIELLE Administration Citalopram Hydrobromide 20 mg 05/25/17 09:00 05/25/17 08:38 Celexa PO 20 mg DAILY DANIELLE Administration Dabigatran 75 mg 05/25/17 09:00 05/25/17 08:38 Pradaxa PO 75 mg BID DANIELLE Administration Diltiazem HCl 180 mg 05/25/17 09:00 05/25/17 08:38 Cardizem Cd PO 180 mg DAILY DANIELLE Administration Furosemide 40 mg 05/25/17 09:00 05/25/17 08:38 Lasix PO 40 mg DAILY DANIELLE Administration Insulin Human Lispro 0 unit 05/25/17 07:30 05/25/17 06:58 Humalog SQ 6 unit ACHS DANIELLE Administration Protocol Methylprednisolone Sodium Succinate 60 mg 05/25/17 00:00 05/25/17 06:45 Solu-Medrol IV 60 mg Q6HR DANIELLE Administration Sodium Chloride 10 ml 05/24/17 21:00 05/25/17 08:38 Saline Flush IV 10 ml BID DANIELLE Administration Intake and Output 05/24/17 05/25/17 05/25/17 22:59 06:59 14:59 Intake Total 200 Balance 200 Intake: Oral 200 Other: Voiding Method Toilet # Voids 0 1 Weight 45.3 kg 43.8 kg 05/24/17 17:50 05/24/17 17:50 Assessment and Plan Assessment: Assessment and plan #1 symptoms of progressively worsening shortness of breath and fatigue, likely secondary to COPD exacerbation as well as an aspect of congestive heart failure #2 congestive heart failure, unspecified at this time, awaiting echocardiogram results, BNP significantly elevated from baseline at 7680 #3 history of paroxysmal atrial fibrillation, currently maintaining sinus rhythm , anticoagulated on Pradaxa #4 hypertension From cardiology's perspective, we will review 2-D echo with Doppler to assess LV systolic function. We will stop by mouth Lasix and put the patient on Lasix 40 mg IV push every 12 hours. We will prefer if patient stayed on selective care unit. Further recommendations to follow. HIGH WORKER note has been reviewed, I agree with a documented findings and plan of care. Patient was seen and examined.
[2017-05-25] MEDS ORDERED: FUROSEMIDE 10 MG/ML 4 ML VIAL IV SCH (10:45)
[2017-05-25 11:49] VITALS: BMI 16.5
[2017-05-25] MEDS: predniSONE 20 MG TAB PO SCH (11:59)
[2017-05-25] MEDS ORDERED: IPRATROPIUM-ALBUTEROL 3 ML NEB INHALATION SCH (12:00)
[2017-05-25 12:03] LABS: Glucose,Whole Blood 199 mg/dL (75-99)
--- NOTE | 2017-05-25 12:49 | ECHOF ---
Referral Reason:dyspnea MEASUREMENTS -------- HEIGHT: 162.6 cm WEIGHT: 44.9 kg BP: 120/75 RVIDd: 3.3 cm (< 3.3) IVSd: 1.1 cm (0.6 - 1.1) LVIDd: 3.0 cm (3.9 - 5.3) LVPWd: 1.0 cm (0.6 - 1.1) IVSs: 1.3 cm LVIDs: 2.1 cm LVPWs: 1.4 cm LA Diam: 2.6 cm (2.7 - 3.8) LAESV Index (A-L): 12.86 ml/m Ao Diam: 3.1 cm (2.0 - 3.7) AV Cusp: 1.9 cm (1.5 - 2.6) MV EXCURSION: 13.536 mm (> 18.000) MV EF SLOPE: 52 mm/s (70 - 150) EPSS: 0.8 cm MV E Mervin: 0.49 m/s MV DecT: 301 ms MV A Mervin: 0.70 m/s MV E/A Ratio: 0.71 RAP: 5.00 mmHg RVSP: 31.76 mmHg FINDINGS -------- Sinus rhythm. This was a technically good study. The left ventricular size is normal. There is borderline concentric left ventricular hypertrophy. Overall left ventricular systolic function is normal with, an EF between 60 - 65 %. The right ventricle is mildly enlarged. Normal LA size by volume 22+/-6 ml/m2. The right atrium is normal in size. The aortic valve is trileaflet and appears structurally normal. The mitral valve leaflets are mildly thickened. Mild mitral annular calcification present. Mild mitral regurgitation is present. Mild tricuspid regurgitation present. Right ventricular systolic pressure is normal at < 35 mmHg. There is no pulmonic regurgitation present. The aortic root size is normal. Normal inferior vena cava with normal inspiratory collapse consistent with estimated right atrial pressure of 5 mmHg. There is no pericardial effusion. CONCLUSIONS -------- 1. Sinus rhythm. 2. The mitral valve leaflets are mildly thickened. 3. Mild mitral annular calcification present. 4. Mild mitral regurgitation is present. 5. Mild tricuspid regurgitation present. 6. Right ventricular systolic pressure is normal at < 35 mmHg. 7. There is no pulmonic regurgitation present. 8. The aortic root size is normal. 9. Normal inferior vena cava with normal inspiratory collapse consistent with estimated right atrial pressure of 5 mmHg. 10. There is no pericardial effusion. 11. This was a technically good study. 12. The left ventricular size is normal. 13. There is borderline concentric left ventricular hypertrophy. 14. Overall left ventricular systolic function is normal with, an EF between 60 - 65 %. 15. The right ventricle is mildly enlarged. 16. Normal LA size by volume 22+/-6 ml/m2. 17. The right atrium is normal in size. 18. The aortic valve is trileaflet and appears structurally normal. SHAPING MACHINE TENDER: Sophie Kumar RDCS
--- NOTE | 2017-05-25 14:23 | P.CNPUL ---
History of Present Illness Consult date: 05/25/17 Requesting physician: Tr Hua Reason for consult: COPD Chief complaint: Shortness of breath History of present illness: This is a 76-year-old female, known history of COPD, O2 dependent, but not prednisone dependent. Patient usually sees a car pilot in [place], but she happens to be visiting friends and family members and [facility]. Patient was seen in our emergency room on 04/02 and on 04/19/20174 symptoms of acute COPD exacerbation, she was advised to be admitted to the hospital on the last visit, but the patient declined. Patient was managed with bronchodilators antibiotics , and a tapering dose of prednisone. This time on 05/24/2017, patient presented again with worsening shortness of breath, cough, wheezing, cough is nonproductive. Patient has been compliant with her oxygen, but does not seem to be helping her much. Chest x-ray upon evaluation in the ER showed mostly COPD, no evidence of infiltrate, and no evidence of congestive heart failure. However, her troponins were elevated, and her pro BNP level was over 7500. Patient was given Lasix, admitted to the hospital placed on diuretics, antibiotics, steroids, and I was asked to see her on consultation. She was already seen by cardiology, and she was diuresed. Patient is feeling much better this morning during my evaluation, hardly any shortness of breath, no cough no wheezing, and further cardiac workup is pending. Again I went back and reviewed her chest x-ray no evidence of congestive heart failure, but clearly the patient responded quite well to diuretics. Not to mention the patient is also on steroids, bronchodilators, and antibiotics. As a matter of fact, patient feels so good that she would likely request to be discharged home in the next 24 hours. Patient is planning to head back to [place] next . Review of Systems 14 point review of systems were obtained, please refer to pertinent positives in HPI, otherwise other systems are negative. Past Medical History Past Medical History: Cancer, COPD, CVA/TIA, Hypertension Additional Past Medical History / Comment(s): Patient wears 2L home O2. breast CA, CVA in 2001- has three fingers that are numb on the left hand, otherwise no defecits. patient states she had ecoli in her blood stream 2 years ago. was also recently diagnosed with bronchitis and was sent home on antibiotics and steroids. History of Any Multi-Drug Resistant Organisms: None Reported Past Surgical History: Tonsillectomy Additional Past Surgical History / Comment(s): left breast tumor resection Past Anesthesia/Blood Transfusion Reactions: No Reported Reaction Past Psychological History: No Psychological Hx Reported Additional Psychological History / Comment(s): Patient currently lives in [place] but has a home in [place] outside of [facility]. She has been here visiting since March 09. Says she has not felt well and was diagnosed with bronchitis shortly after arriving here. Lives alone in her home. States her 3 years ago. Smoking Status: Former smoker Past Alcohol Use History: Occasional Past Drug Use History: None Reported - Past Family History Father Family Medical History: Coronary Artery Disease (CAD) Brother(s) Family Medical History: Coronary Artery Disease (CAD) Sister(s) Family Medical History: Cancer, COPD Additional Family Medical History / Comment(s): cancer in the fallopian tubes Medications and Allergies Home Medications Medication Instructions Recorded Confirmed Type Atorvastatin Calcium [Lipitor] 20 mg PO DAILY 04/02/17 05/24/17 History Citalopram Hydrobromide 20 mg PO DAILY 04/02/17 05/24/17 History [Citalopram HBr] Dabigatran [Pradaxa] 75 mg PO BID 04/02/17 05/24/17 History Diltiazem Cd [Cardizem Cd] 180 mg PO DAILY 04/02/17 05/24/17 History Ipratropium/Albuterol Sulfate 1 - 2 puff INHALATION RT-QID PRN 04/02/17 History [Combivent Respimat Inhaler] Tiotropium Br/Olodaterol HCl 2 puff INHALATION RT-DAILY 04/02/17 05/24/17 History [Stiolto Respimat Inhal [place]] Furosemide [Lasix] 40 mg PO DAILY 04/19/17 05/24/17 History Allergies Allergy/AdvReac Type Severity Reaction Status Date / Time Penicillins Allergy Anaphylaxis Verified 05/24/17 17:42 Sulfa (Sulfonamide Allergy Facial Verified 05/24/17 17:42 Antibiotics) Swelling Physical Exam Vitals: Vital Signs Temp Pulse Pulse Resp BP BP Pulse Ox 05/25/17 12:00 97.2 F L 82 22 114/68 96 05/25/17 08:43 88 05/25/17 08:31 80 05/25/17 08:00 97.6 F 89 20 106/60 97 05/25/17 04:00 97.8 F 85 18 120/75 98 05/25/17 00:00 97.0 F L 95 20 109/59 96 05/24/17 21:19 97.8 F 95 24 127/78 95 05/24/17 20:48 98.0 F 91 25 H 128/71 94 L 05/24/17 19:00 88 25 H 112/66 94 L 05/24/17 18:45 96 26 H 130/67 95 05/24/17 18:41 94 18 05/24/17 18:30 94 18 05/24/17 17:55 91 22 05/24/17 17:04 98.4 F 103 H 18 122/60 93 L Intake and Output 05/24/17 05/25/17 05/25/17 22:59 06:59 14:59 Intake Total 200 Balance 200 Intake: Oral 200 Other: Voiding Method Toilet # Voids 0 1 1 Weight 45.3 kg 43.8 kg 43.8 kg Patient Weight 05/26/17 06:59 Weight 43.8 kg General appearance: Revealed a 76-year-old female in no distress. Head exam: Atraumatic normocephalic. Eye exam: PERRLA, EOMI, no icterus. ENT exam: Neck is supple no neck masses no thyromegaly, throat is clear. Neck exam: No cervical lymphadenopathy, no stridor. Respiratory exam: Diminished breaths on bilaterally no crackles or rhonchi or wheezes Cardiovascular Exam: Normal S1 and S2, 2/6 systolic murmur throughout the precordium GI/Abdominal exam: Nontender no megaly no rebound no guarding positive bowel sounds. Extremities exam: No clubbing, no edema, no cyanosis. Neurological exam: No gross focal neurologic deficit Psychiatric exam: Appropriate mood and affect, normal mental status exam Skin exam: No ulcerations and no rashes. Results - Laboratory Findings CBC and BMP: 05/24/17 17:50 05/24/17 17:50 PT/INR, D-dimer PT 11.9 sec (9.0-12.0) 05/24/17 17:50 INR 1.2 (<1.2) H 05/24/17 17:50 Abnormal lab findings: Abnormal Labs 05/24/17 05/24/17 05/24/17 17:50 17:50 17:50 WBC 12.1 H MCV 105.5 H Neutrophils # 10.5 H Lymphocytes # 0.7 L INR APTT Sodium 134 L Chloride 94 L BUN 34 H Creatinine 1.50 H Glucose 106 H POC Glucose (mg/dL) Troponin I 0.077 H* Total Protein 5.9 L Albumin 3.2 L 05/24/17 05/25/17 05/25/17 17:50 00:34 05:39 WBC MCV Neutrophils # Lymphocytes # INR 1.2 H APTT 33.5 H Sodium Chloride BUN Creatinine Glucose POC Glucose (mg/dL) Troponin I 0.069 H* 0.054 H* Total Protein Albumin 05/25/17 05/25/17 05:49 11:50 WBC MCV Neutrophils # Lymphocytes # INR APTT Sodium Chloride BUN Creatinine Glucose POC Glucose (mg/dL) 204 H 199 H Troponin I Total Protein Albumin - Diagnostic Findings Chest x-ray: image reviewed (COPD, no evidence of active disease.) Assessment and Plan Plan: Impression: 1 acute exacerbation of COPD 2 chronic hypoxic respiratory failure secondary to COPD 3 possible component of diastolic congestive heart failure, based on the fact that the patient responded quite well to diuretics, and based on the fact that she has significantly elevated BNP, but her chest x-ray did not show significant pulmonary edema. 4 history of breast cancer, history of hypertension, history of previous TIA. Recommendation: Patient seems to be responding well to the present treatment plan, hence we'll continue the same, patient could be considered for discharge home on her usual bronchodilators including Combivent, add Symbicort, antibiotics in the form of Cipro 500 twice a day for 10 days, and prednisone 20 mg tapered over a period of 21 days. Patient is planning to travel back to [place] next . Time with Patient: Greater than 30
--- NOTE | 2017-05-25 15:12 | HP ---
HISTORY AND PHYSICAL DATE OF ADMISSION: May 22, 2017 PRESENTING COMPLAINT: Short of breath. HISTORY OF PRESENTING COMPLAINT: This is a very pleasant 76-year-old patient who is from [place] currently living in [facility]. Chronic stable medical conditions include some residual from prior stroke, hypertension. Patient is supposed to have 2 L oxygen at home which she has overcome. Recently started with some bronchitis. Patient presents after worsening short of breath. Minimal cough. Just tired and run down. No fever. Admitted for the same. Patient stopped smoking about 2 years ago. Denies any edema. REVIEW OF SYSTEMS: Constitutional tired. HEENT: None. RESPIRATORY: As above. Cardiovascular as above GASTROINTESTINAL: None. Genitourinary: None. MUSCULOSKELETAL: None. DERMATOLOGICAL: None. HEMATOLOGICAL: None. LYMPHATICS: None. PSYCHIATRY: None. NEUROLOGICAL: None. 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 Depression. PAST SURGICAL HISTORY: Left breast tumor resection and tonsillectomy. SOCIAL HISTORY: Patient is staying in a cottage just outside [facility] and [place] but is from [place]. She has bene here March. The patient is a , living by herself. The patient smoked for 30 years. Stopped 2 years ago. Alcohol occasionally. FAMILY HISTORY: Coronary artery disease and cancer in the fallopian tubes. HOME MEDICATIONS: 2 puffs daily, Combivent 1-2 puffs q.i.d. p.r.n. Lasix 40 mg p.o. daily, Cardizem CD 180 mg p.o. daily, Pradaxa 75 mg p.o. b.i.d., Celexa 20 mg p.o. daily, Lipitor 20 mg p.o. daily. ALLERGIES: PENICILLIN AND SULFUR. PHYSICAL EXAMINATION: Vital signs on presentation: Temperature 98.4, pulse 103, respiration 18, blood pressure 122/60, pulse of 93% on 3 L. GENERAL APPEARANCE: Very thin built, BMI 16.6, sitting up, tired appearing. Eyes pupils are equal. Conjunctivae normal. HEENT: Oral cavity normal. NECK: JVD not raised. Mass not palpable. RESPIRATORY: Effort increased. LUNGS: Diminished breath sounds. Cardiovascular first and second sounds normal. No edema. ABDOMEN: Soft, nontender. Liver and spleen not palpable. Lymphatics: No lymph nodes palpable in the neck and axillae. Psychiatry: Alert and oriented times three. Mood is slightly anxious appearing. Musculoskeletal: Bony prominences especially in the hands. Slight bruising and loss of subcutaneous fat. INVESTIGATIONS: White count 12.1, hemoglobin 14.3, potassium 4.0 BUN 34, creatinine 1.50, troponin 0.077, 0.069, albumin 3.2, chest x-ray showed some hyperinflation, no obvious edema of the venous prominence. The patient's proBNP 7680. ASSESSMENT: 1. Acute chronic obstructive pulmonary disease exacerbation in a prior smoker. 2. Troponin leak from hemodynamic mismatch this is not acute myocardial infarction. 3. Moderate protein calorie malnutrition. BMI 16.2. 4. Hypoalbuminemia, loss of subcutaneous fat. 5. Primary osteoarthritis of multiple joints including hands and knees. 6. Renal failure. Could be chronic, do not have any baseline. 7. Paroxysmal atrial fibrillation. Patient is chronically on Pradaxa. 8. Doubt congestive heart failure. The patient's BNP may be elevated in the setting of renal failure. PLAN: Cardiology was consulted. 2D echocardiogram was done. Patient on nebulized bronchodilators. We will give a burst of IV steroids and also inhaled steroids. Care was discussed with the patient. We will also send off UA and renal ultrasound. Care was discussed in detail with the patient. MMODL / IJN: [id number] /
--- NOTE | 2017-05-25 15:56 | US ---
EXAMINATION TYPE: US kidneys/renal and bladder DATE OF EXAM: 05/25/2017 COMPARISON: NONE CLINICAL HISTORY: renal failure. EXAM MEASUREMENTS: Right Kidney: 9.0 x 3.4 x 4.2 cm Left Kidney: 7.5 x 3.9 x 4.0 cm Right Kidney: No hydronephrosis or masses seen Left Kidney: atrophy, cortical thinning noted greater on the left and within the right kidney Bladder: not fully distended, portions visualized wnl Incidental note made of increased liver echotexture possibly due to fatty infiltration, hepatocellul ar disease. Cortical medullary differentiation slightly reduced, cortical echogenicity thought to be increased. N o hydronephrosis bilaterally, no evident mass. No ascites, no evident renal stone. IMPRESSION: Findings compatible with medical renal disease.
[2017-05-25 16:41] LABS: Glucose,Whole Blood 192 mg/dL (75-99)
[2017-05-25 21:05] LABS: Glucose,Whole Blood 191 mg/dL (75-99)
[2017-05-26 05:50] LABS: Glucose,Whole Blood 148 mg/dL (75-99)
[2017-05-26 06:35] LABS: Appearance,Urine Clear (Clear); Bilirubin,Urine Negative (Negative); Glucose,Urine (UA) Negative (Negative); Ketones,Urine Negative (Negative); Leukocyte Esterase,Urine Negative (Negative); Nitrite,Urine Negative (Negative); Protein,Urine Negative (Negative); Specific Gravity,Urine 1.009 (1.001-1.035); UA Billing (MACRO vs. MICRO) CHEM; Urobilinogen,Urine <2.0 mg/dL (<2.0)
[2017-05-26] MEDS: INSULIN LISPRO (humaLOG) 300 UNIT/3 ML VIAL SQ SCH ×4 (06:51→21:26)
[2017-05-26 06:59] LABS: Calcium 8.4 mg/dL (8.4-10.2); Potassium 3.1 mmol/L (3.5-5.1)
[2017-05-26] MEDS: IPRATROPIUM-ALBUTEROL 3 ML NEB INHALATION SCH ×4 (07:56→20:09)
[2017-05-26] MEDS: ATORVASTATIN 20 MG TAB PO SCH (08:55)
[2017-05-26] MEDS: CITALOPRAM HYDROBROMIDE 20 MG TAB PO SCH (08:55)
[2017-05-26] MEDS: DABIGATRAN 75 MG CAP PO SCH ×2 (08:56→21:26)
[2017-05-26] MEDS: DILTIAZEM CD 180 MG CAP.ER.24H PO SCH (08:56)
[2017-05-26] MEDS: predniSONE 20 MG TAB PO SCH (08:56)
[2017-05-26] MEDS ORDERED: FUROSEMIDE 10 MG/ML 4 ML VIAL IV SCH (09:00)
--- NOTE | 2017-05-26 10:37 | P.PN ---
Subjective Progress Note Date: 05/26/17 Principal diagnosis: Acute exacerbation of COPD and diastolic congestive heart failure. This is a 76-year-old female, known history of COPD, O2 dependent, but not prednisone dependent. Patient usually sees a shaker repairer in [place], but she happens to be visiting friends and family members and [facility]. Patient was seen in our emergency room on 04/02 and on 04/19/20174 symptoms of acute COPD exacerbation, she was advised to be admitted to the hospital on the last visit, but the patient declined. Patient was managed with bronchodilators antibiotics , and a tapering dose of prednisone. This time on 05/24/2017, patient presented again with worsening shortness of breath, cough, wheezing, cough is nonproductive. Patient has been compliant with her oxygen, but does not seem to be helping her much. Chest x-ray upon evaluation in the ER showed mostly COPD, no evidence of infiltrate, and no evidence of congestive heart failure. However, her troponins were elevated, and her pro BNP level was over 7500. Patient was given Lasix, admitted to the hospital placed on diuretics, antibiotics, steroids, and I was asked to see her on consultation. She was already seen by cardiology, and she was diuresed. Patient is feeling much better this morning during my evaluation, hardly any shortness of breath, no cough no wheezing, and further cardiac workup is pending. Again I went back and reviewed her chest x-ray no evidence of congestive heart failure, but clearly the patient responded quite well to diuretics. Not to mention the patient is also on steroids, bronchodilators, and antibiotics. As a matter of fact, patient feels so good that she would likely request to be discharged home in the next 24 hours. Patient is planning to head back to [place] next . Patient was reevaluated today on 05/26/2017, feels much better, breathing a lot easier, no cough no wheezing no shortness of breath, however looking at her renal profile seems to be much worse, BUN is up to 59 and creatinine is 1.65. Suggest cutting down on her diuretics, I have already cut down on the dose that was initially started by cardiology yesterday. Patient may only require 20 mg orally daily instead of 40 mg daily. Pulmonary-farias I already started on prednisone at 20 mg daily, and that could be tapered once the patient is discharged over that period of next 3 weeks. Objective - Vital Signs Vital signs: Vital Signs Temp 96.9 F L 05/26/17 08:00 Pulse 88 05/26/17 08:06 Resp 16 05/26/17 08:00 BP 97/54 05/26/17 08:00 Pulse Ox 93 L 05/26/17 08:00 Intake & Output 05/25/17 05/26/17 05/26/17 18:59 06:59 18:59 Intake Total 380 240 240 Balance 380 240 240 Weight 43.8 kg 44.9 kg Intake: Oral 380 240 240 Other: Voiding Method Toilet # Voids 1 1 - Exam General appearance: Revealed a 76-year-old female in no distress. Head exam: Atraumatic normocephalic. Eye exam: PERRLA, EOMI, no icterus. ENT exam: Neck is supple no neck masses no thyromegaly, throat is clear. Neck exam: No cervical lymphadenopathy, no stridor. Respiratory exam: Diminished breaths on bilaterally no crackles or rhonchi or wheezes Cardiovascular Exam: Normal S1 and S2, 2/6 systolic murmur throughout the precordium GI/Abdominal exam: Nontender no megaly no rebound no guarding positive bowel sounds. Extremities exam: No clubbing, no edema, no cyanosis. Neurological exam: No gross focal neurologic deficit Psychiatric exam: Appropriate mood and affect, normal mental status exam Skin exam: No ulcerations and no rashes. - Labs CBC & Chem 7: 05/24/17 17:50 05/26/17 05:30 Labs: Abnormal Lab Results - Last 24 Hours (Table) 05/25/17 05/25/17 05/25/17 Range/Units 11:50 16:39 20:53 Sodium (137-145) mmol/L Potassium (3.5-5.1) mmol/L Carbon Dioxide (22-30) mmol/L BUN (7-17) mg/dL Creatinine (0.52-1.04) mg/dL Glucose (74-99) mg/dL POC Glucose (mg/dL) 199 H 192 H 191 H (75-99) mg/dL 05/26/17 05/26/17 Range/Units 05:30 05:43 Sodium 134 L (137-145) mmol/L Potassium 3.1 L (3.5-5.1) mmol/L Carbon Dioxide 21 L (22-30) mmol/L BUN 59 H (7-17) mg/dL Creatinine 1.65 H (0.52-1.04) mg/dL Glucose 154 H (74-99) mg/dL POC Glucose (mg/dL) 148 H (75-99) mg/dL Assessment and Plan Plan: Impression: 1 acute exacerbation of COPD 2 chronic hypoxic respiratory failure secondary to COPD 3 possible component of diastolic congestive heart failure, based on the fact that the patient responded quite well to diuretics, and based on the fact that she has significantly elevated BNP, but her chest x-ray did not show significant pulmonary edema. 4 history of breast cancer, history of hypertension, history of previous TIA. 5 possible acute kidney injury, however I believe the rise in her BUN and creatinine is mostly related to diuretics which will be placed on hold. Recommendation: Patient seems to be responding well to the present treatment plan, hence we'll continue the same, patient could be considered for discharge home on her usual bronchodilators including Combivent, add Symbicort, antibiotics in the form of Cipro 500 twice a day for 10 days, and prednisone 20 mg tapered over a period of 21 days. Patient is planning to travel back to [place] next . Time with Patient: Less than 30
[2017-05-26] MEDS ORDERED: POTASSIUM CHLORIDE ER 20 MEQ TAB.ER PO STA (10:49)
[2017-05-26 11:47] LABS: Glucose,Whole Blood 197 mg/dL (75-99)
[2017-05-26 16:44] LABS: Glucose,Whole Blood 149 mg/dL (75-99)
--- NOTE | 2017-05-26 17:43 | PN ---
PROGRESS NOTE DATE OF SERVICE: 05/26/17. PRESENTING COMPLAINT: Short of breath. INTERVAL HISTORY: The patient admitted with COPD exacerbation and element of CHF exacerbation. Breathing is much better. No cough. No edema. Up to the bathroom. REVIEW OF SYSTEMS: Done for constitutional, cardiovascular, GI, pulmonary; relevant findings as above next. CURRENT MEDICATIONS: Reviewed and include IV Lasix this morning. PHYSICAL EXAMINATION: Temperature 97.9, pulse 89, respiratory 18, blood pressure 98/64, pulse 98% room air. GENERAL APPEARANCE: Sitting up, not in distress. EYES: Pupils equal. Conjunctivae normal. NECK: JVD not raised. Mass not palpable. RESPIRATORY: Effort increased. Lungs decreased breath sounds. CARDIOVASCULAR: First and second sounds normal. No edema. ABDOMEN: Soft, nontender. Liver and spleen not palpable. PSYCHIATRY: Alert and oriented x3. Mood and affect normal. INVESTIGATIONS: Potassium 3.1, BUN 59, creatinine 1.65. Accu-Cheks are noted. ASSESSMENT: 1. Acute chronic obstructive pulmonary disease exacerbation in an ex-smoker. 2. Troponin leak from hemodynamic mismatch, this not acute myocardial infarction. 3. Moderate protein calorie malnutrition. BMI 16.2. 4. Primary osteoarthritis in multiple joints including hands and knees. 5. Acute renal failure prerenal from dialysis. 6. Possibly chronic kidney disease, stage III from nephrosclerosis. 7. Paroxysmal atrial fibrillation, chronically on Pradaxa. 8. Acute congestive heart failure exacerbation from diastolic dysfunction, ejection fraction 60-65%. PLAN: Patient is on IV Lasix. Will await further input from Cardiology. Repeat electrolytes tomorrow. Care was discussed with the patient. Questions were answered. MMODL / IJN: [id number] /
[2017-05-26 21:35] LABS: Glucose,Whole Blood 177 mg/dL (75-99)
[2017-05-27 06:25] LABS: Glucose,Whole Blood 116 mg/dL (75-99)
[2017-05-27] MEDS: INSULIN LISPRO (humaLOG) 300 UNIT/3 ML VIAL SQ SCH ×3 (06:28→17:07)
[2017-05-27 07:04] LABS: Calcium 9.1 mg/dL (8.4-10.2); Potassium 4.8 mmol/L (3.5-5.1)
[2017-05-27] MEDS: IPRATROPIUM-ALBUTEROL 3 ML NEB INHALATION SCH ×3 (08:10→16:41)
[2017-05-27] MEDS: DABIGATRAN 75 MG CAP PO SCH (09:00)
[2017-05-27] MEDS: predniSONE 20 MG TAB PO SCH (09:00)
[2017-05-27] MEDS: DILTIAZEM CD 180 MG CAP.ER.24H PO SCH (09:00)
[2017-05-27] MEDS ORDERED: FUROSEMIDE 40 MG TAB PO SCH (09:00)
[2017-05-27] MEDS: CITALOPRAM HYDROBROMIDE 20 MG TAB PO SCH (10:07)
[2017-05-27] MEDS: ATORVASTATIN 20 MG TAB PO SCH (10:07)
[2017-05-27] MEDS ORDERED: SODIUM CHLORIDE 0.9% 1,000 ML IV SCH (11:30)
[2017-05-27 11:35] LABS: Glucose,Whole Blood 128 mg/dL (75-99)
[2017-05-27] MEDS ORDERED: FUROSEMIDE 20 MG TAB PO SCH (13:00)
--- NOTE | 2017-05-27 13:03 | P.PN ---
Subjective Progress Note Date: 05/27/17 Principal diagnosis: Acute exacerbation of COPD and diastolic congestive heart failure. This is a 76-year-old female, known history of COPD, O2 dependent, but not prednisone dependent. Patient usually sees a foreign student adviser in [place], but she happens to be visiting friends and family members and [facility]. Patient was seen in our emergency room on 04/02 and on 04/19/20174 symptoms of acute COPD exacerbation, she was advised to be admitted to the hospital on the last visit, but the patient declined. Patient was managed with bronchodilators antibiotics , and a tapering dose of prednisone. This time on 05/24/2017, patient presented again with worsening shortness of breath, cough, wheezing, cough is nonproductive. Patient has been compliant with her oxygen, but does not seem to be helping her much. Chest x-ray upon evaluation in the ER showed mostly COPD, no evidence of infiltrate, and no evidence of congestive heart failure. However, her troponins were elevated, and her pro BNP level was over 7500. Patient was given Lasix, admitted to the hospital placed on diuretics, antibiotics, steroids, and I was asked to see her on consultation. She was already seen by cardiology, and she was diuresed. Patient is feeling much better this morning during my evaluation, hardly any shortness of breath, no cough no wheezing, and further cardiac workup is pending. Again I went back and reviewed her chest x-ray no evidence of congestive heart failure, but clearly the patient responded quite well to diuretics. Not to mention the patient is also on steroids, bronchodilators, and antibiotics. As a matter of fact, patient feels so good that she would likely request to be discharged home in the next 24 hours. Patient is planning to head back to [place] next . Patient was reevaluated today on 05/26/2017, feels much better, breathing a lot easier, no cough no wheezing no shortness of breath, however looking at her renal profile seems to be much worse, BUN is up to 59 and creatinine is 1.65. Suggest cutting down on her diuretics, I have already cut down on the dose that was initially started by cardiology yesterday. Patient may only require 20 mg orally daily instead of 40 mg daily. Pulmonary-farias I already started on prednisone at 20 mg daily, and that could be tapered once the patient is discharged over that period of next 3 weeks. Reevaluated today on 05/27/2017, patient continues to do well from the pulmonary perspective, in spite of the fact that she has severe underlying COPD , probably a stage III or stage IV. Patient remains on bronchodilators, she is also on prednisone, however she is developing worsening renal profile and I believe it is mostly related to diuretics. She was initially given high dose of diuretics upon presentation, I cut it down yesterday to once daily, and today I have decided to stop all diuretics. Her renal functioning seems to be a bit worse compared to what she had upon presentation. Her BUN is up to 69 and creatinine is 1.70, hence I believe, it is best to stop diuretics. Her renal functioning has been been gradually getting worse. No cough no wheezing no chest pain no fever no chills no hemoptysis. Objective - Vital Signs Vital signs: Vital Signs Temp 98.1 F 05/27/17 11:10 Pulse 74 05/27/17 12:10 Resp 16 05/27/17 11:57 BP 106/59 05/27/17 11:10 Pulse Ox 95 05/27/17 11:10 Intake & Output 05/26/17 05/27/17 05/27/17 18:59 06:59 18:59 Intake Total 480 240 Output Total 2 Balance 478 240 Weight 45.9 kg Intake: Oral 480 240 Output: Urine 2 Other: # Voids 3 1 - Exam General appearance: Revealed a 76-year-old female in no distress. Head exam: Atraumatic normocephalic. Eye exam: PERRLA, EOMI, no icterus. ENT exam: Neck is supple no neck masses no thyromegaly, throat is clear. Neck exam: No cervical lymphadenopathy, no stridor. Respiratory exam: Diminished breaths on bilaterally no crackles or rhonchi or wheezes Cardiovascular Exam: Normal S1 and S2, 2/6 systolic murmur throughout the precordium GI/Abdominal exam: Nontender no megaly no rebound no guarding positive bowel sounds. Extremities exam: No clubbing, no edema, no cyanosis. Neurological exam: No gross focal neurologic deficit Psychiatric exam: Appropriate mood and affect, normal mental status exam Skin exam: No ulcerations and no rashes. - Labs CBC & Chem 7: 05/24/17 17:50 05/27/17 05:26 Labs: Abnormal Lab Results - Last 24 Hours (Table) 05/26/17 05/26/17 05/27/17 Range/Units 16:39 21:20 05:26 Sodium 136 L (137-145) mmol/L BUN 69 H (7-17) mg/dL Creatinine 1.70 H (0.52-1.04) mg/dL Glucose 108 H (74-99) mg/dL POC Glucose (mg/dL) 149 H 177 H (75-99) mg/dL 05/27/17 05/27/17 Range/Units 06:10 11:32 Sodium (137-145) mmol/L BUN (7-17) mg/dL Creatinine (0.52-1.04) mg/dL Glucose (74-99) mg/dL POC Glucose (mg/dL) 116 H 128 H (75-99) mg/dL Assessment and Plan Plan: Impression: 1 acute exacerbation of COPD 2 chronic hypoxic respiratory failure secondary to COPD 3 possible component of diastolic congestive heart failure, based on the fact that the patient responded quite well to diuretics, and based on the fact that she has significantly elevated BNP, but her chest x-ray did not show significant pulmonary edema. 4 history of breast cancer, history of hypertension, history of previous TIA. 5 possible acute kidney injury, however I believe the rise in her BUN and creatinine is mostly related to diuretics which will be discontinued for now. Recommendation: Patient seems to be responding well to the present treatment plan, hence we'll continue the same, patient could be considered for discharge home on her usual bronchodilators including Combivent, add Symbicort, antibiotics in the form of Cipro 500 twice a day for 10 days, and prednisone 20 mg tapered over a period of 21 days. Patient is planning to travel back to [place] next . Time with Patient: Less than 30
--- NOTE | 2017-05-27 13:43 | P.PN ---
Subjective Progress Note Date: 05/27/17 Principal diagnosis: Shortness of breath This is a pleasant 76-year-old female who presented to the hospital with symptoms of progressively worsening shortness of breath. She has a past medical history significant for COPD, hypertension, TIA, breast cancer, and paroxysmal atrial fibrillation. She follows with a traffic control supervisor in [place]. She was seen and examined this morning, states she feels down in the dumps today, otherwise she does feel that her breathing is somewhat improved. We will put the patient on a small dose of oral diuretics today and continue her other medications. Objective - Vital Signs Vital signs: Vital Signs Temp 98.1 F 05/27/17 11:10 Pulse 74 05/27/17 12:10 Resp 16 05/27/17 11:57 BP 106/59 05/27/17 11:10 Pulse Ox 95 05/27/17 11:10 Intake & Output 05/26/17 05/27/17 05/27/17 18:59 06:59 18:59 Intake Total 480 240 Output Total 2 Balance 478 240 Weight 45.9 kg Intake: Oral 480 240 Output: Urine 2 Other: # Voids 3 1 - Exam PHYSICAL EXAMINATION: HEENT: Head is atraumatic, normocephalic. Pupils equal, round. Neck is supple. There is no elevated jugular venous pressure. HEART EXAMINATION: Heart sounds regular, S1 and S2 normal. No murmur or gallop heard. CHEST EXAMINATION: Lungs reveal significantly diminished air entry throughout with faint crackles to bilateral bases. No chest wall tenderness is noted on palpation or with deep breathing. ABDOMEN: Soft, nontender. Bowel sounds are heard. No organomegaly noted. EXTREMITIES: 2+ peripheral pulses with no evidence of peripheral edema and no calf tenderness noted. NEUROLOGIC patient is awake, alert and oriented x3. - Labs CBC & Chem 7: 05/24/17 17:50 05/27/17 05:26 Labs: Abnormal Lab Results - Last 24 Hours (Table) 05/26/17 05/26/17 05/27/17 Range/Units 16:39 21:20 05:26 Sodium 136 L (137-145) mmol/L BUN 69 H (7-17) mg/dL Creatinine 1.70 H (0.52-1.04) mg/dL Glucose 108 H (74-99) mg/dL POC Glucose (mg/dL) 149 H 177 H (75-99) mg/dL 05/27/17 05/27/17 Range/Units 06:10 11:32 Sodium (137-145) mmol/L BUN (7-17) mg/dL Creatinine (0.52-1.04) mg/dL Glucose (74-99) mg/dL POC Glucose (mg/dL) 116 H 128 H (75-99) mg/dL Assessment and Plan Plan: Assessment and plan #1 COPD exacerbation #2 diastolic congestive heart failure acute on chronic, mild exacerbation. #3 paroxysmal atrial fibrillation, on Pradaxa. #4 hypertension Plan We will start the patient on Lasix 20 mg by mouth daily, continue other medications. Once stable from a pulmonary perspective she may be able to be discharged home to follow-up with her traffic control supervisor in [place]. DNP note has been reviewed, I agree with a documented findings and plan of care. Patient was seen and examined.
[2017-05-27 15:42] VITALS: BP 122/70; RESP 18; TEMP 96.7
[2017-05-27 16:31] LABS: Glucose,Whole Blood 137 mg/dL (75-99)
[2017-05-27 16:56] VITALS: PULSE 72
--- NOTE | 2017-05-28 05:38 | DS ---
DISCHARGE SUMMARY DATE OF ADMISSION: 05/24/2017 DATE OF DISCHARGE: 05/27/2017 FINAL DIAGNOSIS: 1. Acute chronic obstructive pulmonary disease exacerbation in an ex-smoker. 2. Troponin leak from hemodynamic mismatch, not acute myocardial infarction. 3. Moderate protein calorie malnutrition, body mass index 16.2. 4. Primary osteoarthritis multiple joints, including hands and knees. 5. Acute renal failure probably from diuresis. 6. Chronic kidney disease, stage III from nephrosclerosis hypertensive. 7. Paroxysmal atrial fibrillation, chronically on Pradaxa. 8. Acute congestive heart failure exacerbation from diastolic dysfunction. Ejection fraction 60% to 65% from hypertensive heart disease. HOSPITAL COURSE: This patient is an ex-smoker presented with COPD exacerbation. Also gave some IV Lasix per Cardiology, felt to be diastolic in nature. Patient's creatinine did bump up from 1.5 to 1.7. Ultrasound show decreased renal cortical differentiation suggestive of chronic kidney disease. I did speak to patient's son over the phone, given an update who is an enrollment nurse up in [place]. Questions were answered. Care was also discussed with the patient. On examination, decreased breath sounds. No edema. Discharge planning and discussion more than 35 minutes. DISCHARGE MEDICATIONS: 1. Lipitor 20 mg a day. 2. Celexa 20 mg a day. 3. Pradaxa 75 mg b.i.d. 4. Cardizem CD 180 mg a day. 5. Combivent 1 to 2 puffs q.i.d. p.r.n. 6. Stiolto Respimat 2 puffs daily. 7. Lasix 40 mg daily to start on 05/29/17. 8. Prednisone 20 mg a day for 3 days. The patient is to follow up with Cardiology in 1 week, with a family doctor in 3 days. BMP to be checked again in 3 days. MMODL / IJN: [id number] /
== END 2017-05-27 18:31 | disposition home or self-care (01) | DRG 190 ==
LOC: EC 16:56 → 6SEL 20:09
PROVIDERS: ADMIT Hospitalist; ATTEND Hospitalist
DX: J44.1 Chronic obstructive pulmonary disease with (acute) exacerbation (principal); I50.33 Acute on chronic diastolic (congestive) heart failure; N17.9 Acute kidney failure, unspecified; J96.11 Chronic respiratory failure with hypoxia; E44.0 Moderate protein-calorie malnutrition; I13.0 Hypertensive heart and chronic kidney disease with heart failure and stage 1 through stage 4 chronic kidney disease, or unspecified chronic kidney disease; I48.0 Paroxysmal atrial fibrillation; I69.998 Other sequelae following unspecified cerebrovascular disease; Z99.81 Dependence on supplemental oxygen; M15.9 Polyosteoarthritis, unspecified; T50.2X5A Adverse effect of carbonic-anhydrase inhibitors, benzothiadiazides and other diuretics, initial encounter; R74.8 Abnormal levels of other serum enzymes; N18.3 Chronic kidney disease, stage 3 (moderate); Z68.1 Body mass index [BMI] 19.9 or less, adult; Z79.01 Long term (current) use of anticoagulants; Z79.899 Other long term (current) drug therapy; Z85.3 Personal history of malignant neoplasm of breast; Z87.891 Personal history of nicotine dependence; Z88.0 Allergy status to penicillin; Z88.2 Allergy status to sulfonamides; Z82.49 Family history of ischemic heart disease and other diseases of the circulatory system
CPT/HCPCS: 36415; 71020; 76770; 80048; 80053; 81003; 82550; 82553; 83605; 83880; 84484; 85025; 85610; 85730; 93005; 93306; 94640; 94760; 96374; 99285